=== PATIENT | female | born 1980 | race Caucasian/White ===

== ENCOUNTER → 2018-09-11 | Day surgery (SDC) | payer MEDICARE, OTHER ==
[~2018-09-11] VITALS: Ht 144.8 cm; Wt 61.1 kg
[2018-09-11 10:52] VITALS: Ht 144.8 cm; Wt 61.1 kg
[2018-09-11 10:55] VITALS: BP 149/74; PULSE 84; RESP 18
== END | disposition home or self-care (01) ==
LOC: SDS 08:30
PROVIDERS: ATTEND Surgery
DX: R22.2 Localized swelling, mass and lump, trunk (principal); Z53.8 Procedure and treatment not carried out for other reasons
CPT/HCPCS: 80053; 85025; 85610; 85730